=== PATIENT | male | born 1960 | race Caucasian/White ===

== ENCOUNTER → 2018-07-10 | Outpatient (CLI) | payer OTHER | END | disposition home or self-care (01) | LOC: RAD 13:35 → EDSTATUS 15:30 | PROVIDERS: ATTEND Family Medicine | DX: N28.1 Cyst of kidney, acquired (principal); R31.9 Hematuria, unspecified | CPT/HCPCS: 76770 ==

== ENCOUNTER → 2018-08-18 | Outpatient (CLI) | payer OTHER | END | disposition home or self-care (01) | LOC: CFH 08:08 | PROVIDERS: ATTEND Urology | DX: N20.0 Calculus of kidney (principal); K40.90 Unilateral inguinal hernia, without obstruction or gangrene, not specified as recurrent | CPT/HCPCS: 74176 ==

== ENCOUNTER 2019-12-16 07:08 | Outpatient (CLI) | payer OTHER | END 2019-12-16 23:59 | disposition home or self-care (01) | LOC: ROC 07:08 | PROVIDERS: ATTEND Radiology Radiation Oncology | DX: C67.9 Malignant neoplasm of bladder, unspecified (principal); Z92.3 Personal history of irradiation | CPT/HCPCS: 99214; G0463 ==

== ENCOUNTER 2019-12-22 12:37 | Day surgery (SDC) | payer OTHER ==
[~2019-12-22] VITALS: Ht 182.9 cm; Wt 80.2 kg
[2019-12-22 13:18] VITALS: BP 137/87
[2019-12-22] MEDS ORDERED: SODIUM CHLORIDE 0.9% 1,000 ML IV SCH (13:22)
[2019-12-22] MEDS ORDERED: MIDAZOLAM 1 MG/ML, 5ML ONE ×2 (13:43)
[2019-12-22] MEDS ORDERED: FENTANYL PF 100 MCG/2ML ONE ×2 (13:43)
[2019-12-22] MEDS ORDERED: NALOXONE 1 MG/ML, 2ML ONE (13:43)
[2019-12-22] MEDS ORDERED: FLUMAZENIL 0.1 MG/1 ML, 5ML ONE (13:43)
[2019-12-22] MEDS ORDERED: LIDOCAINE 1%, 10ML ONE (13:56)
== END 2019-12-22 15:45 | disposition home or self-care (01) ==
LOC: OUT 12:37 → EDSTATUS 14:30 → OUT 15:45
PROVIDERS: ATTEND Pathology Hematology
DX: C67.8 Malignant neoplasm of overlapping sites of bladder (principal); R59.1 Generalized enlarged lymph nodes; I10 Essential (primary) hypertension; E78.00 Pure hypercholesterolemia, unspecified; Z88.1 Allergy status to other antibiotic agents; Z88.0 Allergy status to penicillin; Z88.8 Allergy status to other drugs, medicaments and biological substances; Z87.891 Personal history of nicotine dependence
CPT/HCPCS: 38505; 76942; 88305; 99156; 99157; J2250; J3010; J2310

== ENCOUNTER 2020-04-06 07:28 | Outpatient (CLI) | payer OTHER | END 2020-04-06 23:59 | disposition home or self-care (01) | LOC: ROC 07:28 | PROVIDERS: ATTEND Radiology Radiation Oncology | DX: Z85.51 Personal history of malignant neoplasm of bladder (principal) | CPT/HCPCS: 99212; G0463 ==

== ENCOUNTER → 2020-10-16 | Outpatient (CLI) | payer OTHER | END | disposition home or self-care (01) | LOC: ROC 07:44 | PROVIDERS: ATTEND Radiology Radiation Oncology | DX: Z08 Encounter for follow-up examination after completed treatment for malignant neoplasm (principal); Z85.51 Personal history of malignant neoplasm of bladder | CPT/HCPCS: 99212; G0463 ==

== ENCOUNTER → 2021-02-13 | Outpatient (CLI) | payer OTHER ==
[~2021-02-13] MED LIST: GADOTERATE 10 MMOL/20ML SYR ONE
== END | disposition home or self-care (01) ==
LOC: CFH 13:56 → EDSTATUS 14:00
PROVIDERS: ATTEND Family Medicine
DX: C79.31 Secondary malignant neoplasm of brain (principal); C67.9 Malignant neoplasm of bladder, unspecified; I61.9 Nontraumatic intracerebral hemorrhage, unspecified
CPT/HCPCS: 70553; A9575

== ENCOUNTER 2021-03-07 07:29 | Outpatient (CLI) | payer OTHER | END 2021-03-07 23:59 | disposition home or self-care (01) | LOC: ROC 07:29 | PROVIDERS: ATTEND Radiology Radiation Oncology | DX: Z08 Encounter for follow-up examination after completed treatment for malignant neoplasm (principal); Z85.841 Personal history of malignant neoplasm of brain | CPT/HCPCS: 99213; G0463 ==

== ENCOUNTER 2021-03-23 08:43 | Outpatient (CLI) | payer OTHER | END 2021-03-23 23:59 | disposition home or self-care (01) | LOC: ROC 08:43 | PROVIDERS: ATTEND Radiology Radiation Oncology | DX: Z08 Encounter for follow-up examination after completed treatment for malignant neoplasm (principal); Z85.841 Personal history of malignant neoplasm of brain | CPT/HCPCS: 99213; G0463 ==

== ENCOUNTER → 2021-06-11 | Outpatient (CLI) | payer OTHER | END | disposition home or self-care (01) | LOC: ROC 08:54 | PROVIDERS: ATTEND Radiology Radiation Oncology | DX: Z08 Encounter for follow-up examination after completed treatment for malignant neoplasm (principal); Z85.841 Personal history of malignant neoplasm of brain | CPT/HCPCS: 99213; G0463 ==

== ENCOUNTER 2021-08-16 08:01 | Outpatient (CLI) | payer OTHER | END 2021-08-16 23:59 | disposition home or self-care (01) | LOC: ROC 08:01 | PROVIDERS: ATTEND Radiology Radiation Oncology | DX: C79.31 Secondary malignant neoplasm of brain (principal); Z85.51 Personal history of malignant neoplasm of bladder | CPT/HCPCS: 99213; G0463 ==